=== PATIENT | male | born 1980 | race Caucasian/White ===

== ENCOUNTER 2017-10-05 11:40 | Emergency (ER) | payer OTHER ==
[~2017-10-05] VITALS: Ht 180.3 cm; Wt 77.1 kg
[2017-10-05] MEDS ORDERED: KEFLEX500 M1 PO (12:11)
[2017-10-05 12:20] VITALS: BP 148/95
== END 2017-10-05 12:20 | disposition home or self-care (01) ==
LOC: M.ERS 11:40
DX: S46.221A Laceration of muscle, fascia and tendon of other parts of biceps, right arm, initial encounter (principal); F17.200 Nicotine dependence, unspecified, uncomplicated; X58.XXXA Exposure to other specified factors, initial encounter; Y93.89 Activity, other specified; Y92.89 Other specified places as the place of occurrence of the external cause; Y99.8 Other external cause status